=== PATIENT | female | born 1960 | race Caucasian/White ===

== ENCOUNTER 2016-09-23 13:32 | Emergency (ER) | payer MEDICARE ==
--- NOTE | 2016-09-23 14:48 | ERPHSYRPT ---
- History of Present Illness Time Seen by Provider: 09/23/16 14:42 Source: patient Exam Limitations: no limitations Patient Subjective Stated Complaint: fever for 3 days and 'i just dont feel good ' Triage Nursing Assessment: states fever intermittent for 3 days. normal oral intake. denies v/d. slight nausea. skin warm and dry. generalized achiness Physician History: Fever 103.9 at 11:30A today. Noticed symptoms for past 2 days, associated with dizziness, myalgia, weakness. No cough, congestion sore throat without any chest, abdominal or back pain. Had some nausea but no vomiting or diarrhea. Pt. with previous pneumonia/collapsed lung requiring surgeries. Taking Motrin and Tylenol with good relief. Eating adequately otherwise. No one else sick at home. 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 Associated Symptoms: muscle aches, nausea/vomiting, rhinorrhea, weakness, No abdominal pain, No chest pain, No cough, No rash, No sore throat, No syncope International travel in last 2 weeks: No Allergies/Adverse Reactions: clindamycin Allergy (Intermediate, Verified 09/23/16 13:50) Hives sulfacetamide sodium [From Sulfamide] Allergy (Intermediate, Verified 09/23/16 13:50) Hives Home Medications: Albuterol Sulfate [Proair Hfa] 8.5 gm IH QIDPRN PRN 09/23/16 [History] Alendronate Sodium 70 mg [Fosamax 70 MG] 70 mg PO UD 09/23/16 [History] Alprazolam 1 mg [Xanax 1 mg] 1 mg PO TIDPRN 09/23/16 [History] Calcium Carbonate/Vitamin D3 [Calcium 500 + Vit D 200 Tablet] 1 each PO DAILY [History] Diltiazem HCl 300 mg [Cardizem CD 300 MG] 300 mg PO DAILY 09/23/16 [ History] Furosemide 20 mg [Lasix 20 mg] 20 mg PO DAILY 09/23/16 [History] Losartan Potassium 50 mg PO DAILY 09/23/16 [History] Montelukast Sodium [Singulair] 2 mg PO DAILY 09/23/16 [History] Potassium Chloride 10 Meq Tab* [Klor Con 10 MEQ] 10 meq PO DAILY 09/23/16 [ History] Valsartan [Diovan] 160 mg PO DAILY 09/23/16 [History] Vortioxetine Hydrobromide [Brintellix] 10 mg PO DAILY 09/23/16 [History] Zolpidem Tartrate [Ambien Cr] 12.5 mg PO DAILY 09/23/16 [History] Hx Tetanus, Diphtheria Vaccination/Date Given: Yes Hx Influenza Vaccination/Date Given: No Hx Pneumococcal Vaccination/Date Given: No Immunizations Up to Date: Yes - Past Medical History Pertinent Past Medical History: Yes Neurological History: No Pertinent History ENT History: No Pertinent History Cardiac History: Hypertension Respiratory History: COPD Endocrine Medical History: No Pertinent History Musculoskeletal History: Osteoarthritis GI Medical History: Other History: No Pertinent History Psycho-Social History: Depression Female Reproductive Disorders: No Pertinent History Other Medical History: PT. USES 2L 02 AT ALL TIMES; 3-4 L O2 AT NIGHT. Fe Deficiency - Past Surgical History Past Surgical History: Yes Neuro Surgical History: No Pertinent History Cardiac: No Pertinent History Respiratory: No Pertinent History Gastrointestinal: Bowel Surgery, Cholecystectomy Genitourinary: No Pertinent History Musculoskeletal: No Pertinent History Female Surgical History: No Pertinent History Other Surgical History: SURGERY FOR BARIATRIC AND BOWEL OBSTRUCTION - Social History Smoking Status: Never smoker Exposure to second hand smoke: Yes Alcohol Use: None Drug Use: none Patient Lives Alone: No Significant Family History: heart disease (parents) - Female History Hx Now: No - Nursing Vital Signs Nursing Vital Signs: Initial Vital Signs Temperature 99.1 F Temperature Source Oral Pulse Rate 81 Respiratory Rate 18 Blood Pressure [Right Arm] 100/60 Pain Intensity 2 - Physical Exam General Appearance: no apparent distress, alert, other (Obese female) Eye Exam: PERRL/EOMI ENT Exam: normal ENT inspection, No tonsillar exudate Neck Exam: supple, full range of motion, No meningismus Respiratory Exam: normal breath sounds, lungs clear, no respiratory distress Cardiovascular/Chest Exam: normal heart sounds, regular rate/rhythm, No murmur, No edema Gastrointestinal/Abdominal Exam: soft, non tender, no distention Pelvic Exam: not done Rectal Exam: deferred Extremity Exam: non-tender, normal range of motion, normal inspection, normal capillary refill Neurologic Exam: alert, oriented x 3, cooperative, 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, normal mood/affect, sensation nml, No motor deficits Skin Exam: normal color, warm, dry, No rash - Radiology Exams Chest X-ray Interpretation: Teleradiologist Report, Negative, No Pneumonia Ordered Tests: Active Orders 24 hr Category Date Time Status Clean Catch Urine Specimen STAT Care 09/23/16 14:52 Active IV Insertion STAT Care 09/23/16 14:52 Active CHEST 2 VIEWS (PA AND LAT) Stat Exams 09/23/16 14:54 Completed BMP Stat Lab 09/23/16 15:44 Completed CBC W DIFF Stat Lab 09/23/16 15:44 Completed CULTURE, THROAT Stat Lab 09/23/16 15:44 Received Manual Differential NC Stat Lab 09/23/16 15:44 Completed STREP SCREEN-BETA A Stat Lab 09/23/16 15:44 Completed UA W/ MICROSCOPIC Stat Lab 09/23/16 15:44 Completed Medication Summary Generic Name Dose Route Start Last Admin Trade Name Freq PRN Reason Stop Dose Admin Levofloxacin/Dextrose 100 mls @ 100 mls/hr 09/23/16 16:04 09/23/16 16:16 Levofloxacin 500mg/100ml D5w IV 09/23/16 17:03 100 mls/hr STAT ONE Administration Discontinued Medications Generic Name Dose Route Start Last Admin Trade Name Freq PRN Reason Stop Dose Admin Sodium Chloride 1,000 mls @ 999 mls/hr 09/23/16 14:52 09/23/16 15:05 Sodium Chloride 0.9% 1000 Ml IV 09/23/16 15:52 999 mls/hr .Q1H1M STA Administration Sodium Chloride Confirm 09/23/16 15:03 Sodium Chloride 0.9% 1000 Ml Administered 09/23/16 15:04 Dose 1,000 mls @ ud .ROUTE .STK-MED ONE Levofloxacin/Dextrose Confirm 09/23/16 16:14 Levofloxacin 500mg/100ml D5w Administered 09/23/16 16:15 Dose 100 mls @ ud IV .STK-MED ONE Ibuprofen 800 mg 09/23/16 14:52 09/23/16 15:05 Motrin 600 Mg PO 09/23/16 14:53 800 mg STAT STA Administration Ibuprofen Confirm 09/23/16 15:03 Motrin 400 Mg Administered 09/23/16 15:04 Dose 800 mg .ROUTE .STK-MED ONE Lab/Rad Data: Laboratory Result Diagrams 09/23/16 15:44 09/23/16 15:44 Laboratory Results 09/23/16 09/23/16 09/23/16 Range/Units 15:44 15:44 15:44 WBC 15.1 H (4.0-10.5) K/mm3 RBC 3.26 L (4.1-5.4) M/mm3 Hgb 10.6 L (12.0-16.0) gm/dl Hct 32.7 L (35-47) % MCV 100.3 H (78-100) fl MCH 32.5 H (26-32) pg MCHC 32.4 (32-36) g/dl RDW 12.4 (11.5-14.0) % Plt Count 194 (150-450) K/mm3 MPV 9.8 H (6-9.5) fl Segmented Neutrophils 76 H (36.0-66.0) % Band Neutrophils 17 H (0.0-2.0) % Lymphocytes (Manual) 4 L (24-44) % Monocytes (Manual) 3 (0.0-12.0) % Differential Comment NORMAL Platelet Estimate NORMAL (NORMAL) Sodium 140 (136-145) mEq/L Potassium 3.4 L (3.5-5.1) mEq/L Chloride 103 (98-107) mEq/L Carbon Dioxide 27.8 (21-32) mEq/L Anion Gap 12.1 (5-15) MEQ/L BUN 19 (9-20) mg/dL Creatinine 1.06 (0.55-1.30) mg/dl Estimated GFR 57 ML/MIN Glucose 116 H (70-110) MG/DL Calcium 8.5 (8.5-10.1) mg/dL Ur Collection Type VOID Urine Color YELLOW (YELLOW) Urine Appearance SLIGHTLY CLOUDY (CLEAR) Urine pH 5.0 (5-6) Ur Specific [place] <=1.005 (1.005-1.025) Urine Protein TRACE (Negative) Urine Glucose (UA) NEGATIVE (NEGATIVE) mg/dL Urine Ketones NEGATIVE (NEGATIVE) Urine Nitrite NEGATIVE (NEGATIVE) Urine Bilirubin NEGATIVE (NEGATIVE) Urine Urobilinogen 1 (0-1) mg/dL Urine WBC (Auto) MODERATE (NEGATIVE) Urine RBC (Auto) SMALL (0-5) Williams/ul Urine Microscopic RBC 2-5 (0-2) /HPF Urine Microscopic WBC >100 (0-5) /HPF Ur Epithelial Cells FEW (FEW) /HPF Urine Bacteria MANY (NEGATIVE) /HPF Streptococcus Screen (Negative) Specimen Received 09/23/16 1553 09/23/16 Range/Units 15:44 WBC (4.0-10.5) K/mm3 RBC (4.1-5.4) M/mm3 Hgb (12.0-16.0) gm/dl Hct (35-47) % MCV (78-100) fl MCH (26-32) pg MCHC (32-36) g/dl RDW (11.5-14.0) % Plt Count (150-450) K/mm3 MPV (6-9.5) fl Segmented Neutrophils (36.0-66.0) % Band Neutrophils (0.0-2.0) % Lymphocytes (Manual) (24-44) % Monocytes (Manual) (0.0-12.0) % Differential Comment Platelet Estimate (NORMAL) Sodium (136-145) mEq/L Potassium (3.5-5.1) mEq/L Chloride (98-107) mEq/L Carbon Dioxide (21-32) mEq/L Anion Gap (5-15) MEQ/L BUN (9-20) mg/dL Creatinine (0.55-1.30) mg/dl Estimated GFR ML/MIN Glucose (70-110) MG/DL Calcium (8.5-10.1) mg/dL Ur Collection Type Urine Color (YELLOW) Urine Appearance (CLEAR) Urine pH (5-6) Ur Specific [place] (1.005-1.025) Urine Protein (Negative) Urine Glucose (UA) (NEGATIVE) mg/dL Urine Ketones (NEGATIVE) Urine Nitrite (NEGATIVE) Urine Bilirubin (NEGATIVE) Urine Urobilinogen (0-1) mg/dL Urine WBC (Auto) (NEGATIVE) Urine RBC (Auto) (0-5) Williams/ul Urine Microscopic RBC (0-2) /HPF Urine Microscopic WBC (0-5) /HPF Ur Epithelial Cells (FEW) /HPF Urine Bacteria (NEGATIVE) /HPF Streptococcus Screen NEGATIVE (Negative) Specimen Received - Progress Progress: improved Progress Note: 09/23/16 17:04 Pt. given IVF's along with Levaquin for UTI. States she feels better. Counseled pt/family regarding: lab results, diagnosis, rad results - Departure Time of Disposition: 17:04 Departure Disposition: Home Clinical Impression: UTI (urinary tract infection) Condition: Stable Critical Care Time: No Instructions: Fever (Symptom) -- Adult, Urinary Tract Infection (UTI) Additional Instructions: Drink plenty of fluids. Motrin or Tylenol for fever RX: Levaquin Return for worse fever, chills, vomiting, abdominal pain or any problems. Prescriptions: Levofloxacin [Levaquin] 500 mg PO DAILY #5 tablet
[2016-09-23] MEDS ORDERED: Sodium Chloride 0.9% 1000 ML 1,000 ML IV STA (14:52)
[2016-09-23] MEDS ORDERED: MOTRIN 600 MG PO STA (14:52)
[2016-09-23] MEDS ORDERED: MOTRIN 400 MG ONE (15:03)
[2016-09-23] MEDS ORDERED: Sodium Chloride 0.9% 1000 ML 1,000 ML ONE (15:03)
--- NOTE | 2016-09-23 15:28 | XRAY ---
Indication: Fever and cough. Comparison: January 05, 2013. PA/lateral chest hyperinflated with new right mid to lower lung curvilinear opacities and surgical clips all presumed postsurgical. Remaining lungs clear. Heart is not enlarged. Bony thorax intact with old right rib fractures and mild spinal degenerative changes. Impression: New right lung post surgical changes. Negative for acute pneumonic process or CHF.
[2016-09-23 15:48] LABS: Mean Cell Volume 100.3 fl (78-100); Mean Corpuscular Hemoglobin 32.5 pg (26-32); Mean Platelet Volume 9.8 fl (6-9.5); Platelet Count 194 K/mm3 (150-450); Red Blood Count 3.26 M/mm3 (4.1-5.4); Red Cell Distribution Width 12.4 % (11.5-14.0); White Blood Count 15.1 K/mm3 (4.0-10.5)
[2016-09-23 15:55] LABS: Collection Type VOID
[2016-09-23 15:56] LABS: COMPLETE URINE MICROSCOPIC? YES
[2016-09-23 15:58] LABS: Bacteria MANY /HPF (NEGATIVE); Epithelial Cells FEW /HPF (FEW); WBC >100 /HPF (0-5)
[2016-09-23] MEDS ORDERED: Levofloxacin 500MG/100ML D5W 100 ML IV ONE ×2 (16:04→16:14)
[2016-09-23 16:12] LABS: ANION GAP 12.1 MEQ/L (5-15); Carbon Dioxide 27.8 mEq/L (21-32); Potassium 3.4 mEq/L (3.5-5.1)
[2016-09-23 16:30] LABS: BAND 17 % (0.0-2.0); Platelet Estimate NORMAL (NORMAL); Total Cells Counted 100
[2016-09-23 17:34] VITALS: BP 148/79; PULSE 72; O2SAT 94
== END 2016-09-23 17:34 | disposition home or self-care (01) ==
LOC: ED 13:32
DX: N39.0 Urinary tract infection, site not specified (principal); R50.9 Fever, unspecified
CPT/HCPCS: 36000; 36415; 71020; 80048; 81000; 85025; 87070; 87430; 87631; 96360; 96361; 96365; 99284; J1956; A9270-GY

== ENCOUNTER 2018-11-04 18:00 | Emergency (ER) | payer MEDICARE ==
[2018-11-04] MEDS ORDERED: Sodium Chloride 0.9% 1000 ML 1,000 ML IV STA (18:11)
[2018-11-04] MEDS ORDERED: Sodium Chloride 0.9% 1000 ML 1,000 ML ONE (18:15)
--- NOTE | 2018-11-04 18:33 | ERPHSYRPT ---
- History of Present Illness Source: patient Exam Limitations: no limitations Patient Subjective Stated Complaint: nausea with dry heaving. loose watery stool since after eating taco salad. Triage Nursing Assessment: alert and in no distress.staets nause with retching. loose watery stools since . abdomen soft. generalized cramping. staes started after eating taco salad. Timing/Duration: day(s) (2-3 days) Severity: moderate Associated Symptoms: nausea, vomiting, abdominal pain, weakness Hx Tetanus, Diphtheria Vaccination/Date Given: Yes Hx Influenza Vaccination/Date Given: No Hx Pneumococcal Vaccination/Date Given: No <YESSY,JENNA - Last Filed: 11/04/18 18:47> <EDIL POOLE - Last Filed: 11/04/18 21:39> - History of Present Illness Time Seen by Provider: 11/04/18 18:30 Physician History: nausea with dry heaving. loose watery stool since after eating taco salad. no fever (YESSY,JENNA) Allergies/Adverse Reactions: clindamycin Allergy (Intermediate, Verified 09/23/16 13:50) Hives sulfacetamide sodium [From Sulfamide] Allergy (Intermediate, Verified 09/23/16 13:50) Hives Home Medications: Albuterol Sulfate [Proair Hfa] 8.5 gm IH QIDPRN PRN 09/23/16 [History] Alendronate Sodium 70 mg [Fosamax 70 MG] 70 mg PO UD 09/23/16 [History] Alprazolam 1 mg [Xanax 1 mg] 1 mg PO TIDPRN 09/23/16 [History] Calcium Carbonate/Vitamin D3 [Calcium 500 + Vit D 200 Tablet] 1 each PO DAILY [History] Diltiazem HCl 300 mg [Cardizem CD 300 MG] 300 mg PO DAILY 09/23/16 [ History] Furosemide 20 mg [Lasix 20 mg] 20 mg PO DAILY 09/23/16 [History] Losartan Potassium 50 mg PO DAILY 09/23/16 [History] Montelukast Sodium [Singulair] 2 mg PO DAILY 09/23/16 [History] Potassium Chloride 10 Meq Tab* [Klor Con 10 MEQ] 10 meq PO DAILY 09/23/16 [ History] Valsartan [Diovan] 160 mg PO DAILY 09/23/16 [History] Vortioxetine Hydrobromide [Brintellix] 10 mg PO DAILY 09/23/16 [History] Zolpidem Tartrate [Ambien Cr] 12.5 mg PO DAILY 09/23/16 [History] - Review of Systems Constitutional: Weakness, No Fever, No Chills Eyes: No Symptoms Ears, Nose, & Throat: No Symptoms Respiratory: No Cough, No Dyspnea Cardiac: No Chest Pain, No Edema, No Syncope Abdominal/Gastrointestinal: Nausea, Vomiting, Diarrhea, Appetite Changes, No Abdominal Pain Genitourinary Symptoms: No Dysuria Musculoskeletal: No Back Pain, No Neck Pain Skin: No Rash Neurological: No Dizziness, No Focal Weakness, No Sensory Changes Psychological: No Symptoms Endocrine: No Symptoms All Other Systems: Reviewed and Negative < - Last Filed: 11/04/18 18:47> - Past Medical History Pertinent Past Medical History: Yes Neurological History: No Pertinent History ENT History: No Pertinent History Cardiac History: Hypertension Respiratory History: COPD Endocrine Medical History: No Pertinent History Musculoskeletal History: Osteoarthritis GI Medical History: Other History: No Pertinent History Psycho-Social History: Depression Female Reproductive Disorders: No Pertinent History Other Medical History: PT. USES 2L 02 AT ALL TIMES; 3-4 L O2 AT NIGHT. Fe Deficiency - Past Surgical History Past Surgical History: Yes Neuro Surgical History: No Pertinent History Cardiac: No Pertinent History Respiratory: No Pertinent History Gastrointestinal: Bowel Surgery, Cholecystectomy Genitourinary: No Pertinent History Musculoskeletal: No Pertinent History Female Surgical History: No Pertinent History Other Surgical History: SURGERY FOR BARIATRIC AND BOWEL OBSTRUCTION - Social History Smoking Status: Never smoker Exposure to second hand smoke: No Alcohol Use: None Drug Use: none Patient Lives Alone: No Significant Family History: heart disease (parents) < - Last Filed: 11/04/18 18:47> - Physical Exam General Appearance: no apparent distress, alert Eye Exam: PERRL/EOMI, eyes nml inspection Ears, Nose, Throat Exam: normal ENT inspection, TMs normal, pharynx normal, moist mucous membranes Neck Exam: normal inspection, non-tender, supple, full range of motion Respiratory Exam: normal breath sounds, lungs clear, No respiratory distress Cardiovascular Exam: regular rate/rhythm, normal heart sounds, normal peripheral pulses Gastrointestinal/Abdomen Exam: soft, normal bowel sounds, No tenderness, No mass Back Exam: normal inspection, normal range of motion, No CVA tenderness, No vertebral tenderness Extremity Exam: normal inspection, normal range of motion, pelvis stable Neurologic Exam: alert, oriented x 3, cooperative, normal mood/affect, nml cerebellar function, nml station & gait, sensation nml, No motor deficits Skin Exam: normal color, warm, dry, No rash Lymphatic Exam: No adenopathy SpO2: 18 <YESSY,JENNA - Last Filed: 11/04/18 18:47> - Nursing Vital Signs Nursing Vital Signs: Initial Vital Signs Temperature 97.7 F 11/04/18 18:12 Pulse Rate 96 H 11/04/18 18:12 Respiratory Rate 18 11/04/18 18:12 Blood Pressure 109/75 11/04/18 18:12 O2 Sat by Pulse Oximetry 97 11/04/18 18:12 Pain Scale Pain Intensity 0 - Course Nursing assessment & vital signs reviewed: Yes <YESSY,JENNA - Last Filed: 11/04/18 18:47> - CT Exams Abdomen/Pelvis CT Interpretation: Negative, Other (Enteritis) <EDIL POOLE - Last Filed: 11/04/18 21:39> Ordered Tests: Active Orders 24 hr Category Date Time Status ABDOMEN AND PELVIS W CONTRAST [CT] Stat Exams 11/04/18 19:36 Taken CHEST 2 VIEWS (PA AND LAT) Stat Exams 11/04/18 18:24 Taken AMYLASE Stat Lab 11/04/18 18:38 Completed BLOOD CULTURE Stat Lab 11/04/18 18:38 Received CBC W DIFF Stat Lab 11/04/18 18:38 Completed CMP Stat Lab 11/04/18 18:38 Completed CULTURE,URINE Stat Lab 11/04/18 Uncollected LIPASE Stat Lab 11/04/18 18:38 Completed Lactic Acid Stat Lab 11/04/18 18:23 Completed UA W/RFX UR CULTURE Stat Lab 11/04/18 20:03 Completed Peak Expiratory Flow Rate ONCE RT 11/04/18 20:36 Active Respiratory Therapy Assessment DAILY RT 11/04/18 20:35 Active Medication Summary Discontinued Medications Generic Name Dose Route Start Last Admin Trade Name Freq PRN Reason Stop Dose Admin Albuterol/Ipratropium 3 ml 11/04/18 20:05 11/04/18 20:31 Duoneb 0.5-3 Mg/3 Ml Neb IH 11/04/18 20:06 3 ml STAT ONE Administration Albuterol/Ipratropium Confirm 11/04/18 20:09 Duoneb 0.5-3 Mg/3 Ml Neb Administered 11/04/18 20:10 Dose 3 ml IH .STK-MED ONE Cephalexin HCl 500 mg 11/04/18 21:27 11/04/18 21:34 Keflex 500 Mg PO 11/04/18 21:28 500 mg STAT ONE Administration Cephalexin HCl Confirm 11/04/18 21:33 Keflex 500 Mg Administered 11/04/18 21:34 Dose 500 mg .ROUTE .STK-MED ONE Sodium Chloride 1,000 mls @ 999 mls/hr 11/04/18 18:11 11/04/18 19:31 Sodium Chloride 0.9% 1000 Ml IV 11/04/18 19:11 Infused .Q1H1M STA Infusion Sodium Chloride Confirm 11/04/18 18:15 Sodium Chloride 0.9% 1000 Ml Administered 11/04/18 18:16 Dose 1,000 mls @ ud .ROUTE .STK-MED ONE Lorazepam 0.5 mg 11/04/18 19:48 11/04/18 19:54 Ativan 2 Mg/1 Ml Vial IV 11/04/18 19:49 0.5 mg STAT ONE Administration Lorazepam Confirm 11/04/18 19:53 Ativan 2 Mg/1 Ml Vial Administered 11/04/18 19:54 Dose 2 mg .ROUTE .STK-MED ONE Ondansetron HCl 4 mg 11/04/18 19:48 11/04/18 19:53 Zofran 4 Mg/2 Ml Vial IV 11/04/18 19:49 4 mg STAT ONE Administration Ondansetron HCl Confirm 11/04/18 19:53 Zofran 4 Mg/2 Ml Vial Administered 11/04/18 19:54 Dose 4 mg .ROUTE .STK-MED ONE Ondansetron HCl 4 mg 11/04/18 21:30 11/04/18 21:34 Zofran Odt 4 Mg PO 11/04/18 21:31 4 mg STAT ONE Administration Ondansetron HCl 4 mg 11/04/18 21:30 Zofran Odt 4 Mg PO 11/04/18 21:31 STAT ONE Ondansetron HCl Confirm 11/04/18 21:33 Zofran Odt 4 Mg Administered 11/04/18 21:34 Dose 4 mg .ROUTE .STK-MED ONE Lab/Rad Data: Laboratory Result Diagrams 11/04/18 18:38 11/04/18 18:38 Laboratory Results 11/04/18 11/04/18 11/04/18 Range/Units 20:03 18:38 18:38 WBC 9.1 (4.0-10.5) K/mm3 RBC 4.47 (4.1-5.4) M/mm3 Hgb 14.8 (12.0-16.0) gm/dl Hct 44.4 (35-47) % MCV 99.3 (78-100) fl MCH 33.1 H (26-32) pg MCHC 33.3 (32-36) g/dl RDW 12.4 (11.5-14.0) % Plt Count 355 (150-450) K/mm3 MPV 9.5 (6-9.5) fl Gran % 76.1 H (36.0-66.0) % Eos # (Auto) 0.06 (0-0.5) Absolute Lymphs (auto) 1.16 (1.0-4.6) Absolute Monos (auto) 0.93 (0.0-1.3) Lymphocytes % 12.7 L (24.0-44.0) % Monocytes % 10.2 (0.0-12.0) % Eosinophils % 0.7 (0.00-5.0) % Basophils % 0.3 (0.0-0.4) % Absolute Granulocytes 6.95 H (1.4-6.9) Basophils # 0.03 (0-0.4) Sodium 136 L (137-145) mmol/L Potassium 4.0 (3.5-5.1) mmol/L Chloride 94 L (98-107) mmol/L Carbon Dioxide 30 (22-30) mmol/L Anion Gap 16.1 H (5-15) MEQ/L BUN 9 (7-17) mg/dL Creatinine 0.51 L (0.52-1.04) mg/dL Estimated GFR > 60.0 ML/MIN Glucose 113 H (74-106) mg/dL Lactic Acid (0.4-2.0) Calcium 9.9 (8.4-10.2) mg/dL Total Bilirubin 0.60 (0.2-1.3) mg/dL AST 38 H (14-36) U/L ALT 33 (0-35) U/L Alkaline Phosphatase 137 H (38-126) U/L Serum Total Protein 8.4 H (6.3-8.2) g/dL Albumin 4.7 (3.5-5.0) g/dL Amylase 78 (30-110) U/L Lipase 43 (23-300) U/L Urine Color YELLOW (YELLOW) Urine Appearance SLIGHTLY CLOUDY (CLEAR) Urine pH 6.0 (5-6) Ur Specific [place] 1.008 (1.005-1.025) Urine Protein NEGATIVE (Negative) Urine Ketones TRACE (NEGATIVE) Urine Blood NEGATIVE (0-5) Williams/ul Urine Nitrite NEGATIVE (NEGATIVE) Urine Bilirubin NEGATIVE (NEGATIVE) Urine Urobilinogen NEGATIVE (0-1) mg/dL Ur Leukocyte Esterase TRACE (NEGATIVE) Urine WBC (Auto) 3-5 (0-5) /HPF Urine RBC (Auto) 0-2 (0-2) /HPF U Hyaline Cast (Auto) 0-2 (0-2) /LPF U Epithel Cells (Auto) RARE (FEW) /HPF Urine Bacteria (Auto) MODERATE (NEGATIVE) /HPF Urine Mucus (Auto) SLIGHT (NEGATIVE) /HPF Urine Culture Reflexed NO (NO) Urine Glucose NEGATIVE (NEGATIVE) mg/dL 11/04/18 Range/Units 18:23 WBC (4.0-10.5) K/mm3 RBC (4.1-5.4) M/mm3 Hgb (12.0-16.0) gm/dl Hct (35-47) % MCV (78-100) fl MCH (26-32) pg MCHC (32-36) g/dl RDW (11.5-14.0) % Plt Count (150-450) K/mm3 MPV (6-9.5) fl Gran % (36.0-66.0) % Eos # (Auto) (0-0.5) Absolute Lymphs (auto) (1.0-4.6) Absolute Monos (auto) (0.0-1.3) Lymphocytes % (24.0-44.0) % Monocytes % (0.0-12.0) % Eosinophils % (0.00-5.0) % Basophils % (0.0-0.4) % Absolute Granulocytes (1.4-6.9) Basophils # (0-0.4) Sodium (137-145) mmol/L Potassium (3.5-5.1) mmol/L Chloride (98-107) mmol/L Carbon Dioxide (22-30) mmol/L Anion Gap (5-15) MEQ/L BUN (7-17) mg/dL Creatinine (0.52-1.04) mg/dL Estimated GFR ML/MIN Glucose (74-106) mg/dL Lactic Acid 1.0 (0.4-2.0) Calcium (8.4-10.2) mg/dL Total Bilirubin (0.2-1.3) mg/dL AST (14-36) U/L ALT (0-35) U/L Alkaline Phosphatase (38-126) U/L Serum Total Protein (6.3-8.2) g/dL Albumin (3.5-5.0) g/dL Amylase (30-110) U/L Lipase (23-300) U/L Urine Color (YELLOW) Urine Appearance (CLEAR) Urine pH (5-6) Ur Specific [place] (1.005-1.025) Urine Protein (Negative) Urine Ketones (NEGATIVE) Urine Blood (0-5) Williams/ul Urine Nitrite (NEGATIVE) Urine Bilirubin (NEGATIVE) Urine Urobilinogen (0-1) mg/dL Ur Leukocyte Esterase (NEGATIVE) Urine WBC (Auto) (0-5) /HPF Urine RBC (Auto) (0-2) /HPF U Hyaline Cast (Auto) (0-2) /LPF U Epithel Cells (Auto) (FEW) /HPF Urine Bacteria (Auto) (NEGATIVE) /HPF Urine Mucus (Auto) (NEGATIVE) /HPF Urine Culture Reflexed (NO) Urine Glucose (NEGATIVE) mg/dL <YESSY,JENNA - Last Filed: 11/04/18 18:47> - Progress Progress: improved Counseled pt/family regarding: lab results, diagnosis, need for follow-up, rad results <EDIL POOLE - Last Filed: 11/04/18 21:39> - Progress Progress Note: 11/04/18 21:28 Pt denies severe pain, not vomited, afebrile, she was c/o vague urinary symptoms , started on Keflex, and urine cultures were ordered. She is being discharged in stable condition after discussing her labs and CT results, advised to rest x 2-3 days, drink plenty of fluids, and follow up with her physician in 2-3 days, return if severe pain, vomiting, fever> 102 F! (ALEJANDRA POOLEOS) <JENNA KRISHNAMURTHY - Last Filed: 11/04/18 18:47> - Departure Departure Disposition: Home Critical Care Time: No <NEMOLUISAEDIL Brown - Last Filed: 11/04/18 21:39> - Departure Clinical Impression: Gastroenteritis UTI (urinary tract infection) Qualifiers: Urinary tract infection type: acute cystitis Hematuria presence: without hematuria Qualified Code(s): N30.00 - Acute cystitis without hematuria Condition: Stable Referrals: ERIC PAGAN [Primary Care Provider] - Instructions: Urinary Tract Infection, Adult (DC), Viral Gastroenteritis, Adult (DC) Additional Instructions: Rest x 2-3 days, drink plenty of fluids, and follow up with your physician in 2- 3 days, return if severe pain, vomiting, fever> 102 F! Prescriptions: Ondansetron ODT 4 MG [Zofran Odt 4 mg] 4 mg PO Q6H PRN PRN #10 tab.rapdis PRN Reason: Nausea/Vomiting Cephalexin Mh 500 mg [Keflex 500 mg] 500 mg PO Q6H #28 capsule
[2018-11-04 18:40] LABS: BASOPHIL % 0.3 % (0.0-0.4); Basophil (Absolute #) 0.03 (0-0.4); Eosinophil % 0.7 % (0.00-5.0); Eosinophil (Absolute #) 0.06 (0-0.5); Granulocyte Absolute (ANC) 6.95 (1.4-6.9); Granulocytes % 76.1 % (36.0-66.0); Hematocrit 44.4 % (35-47); Hemoglobin 14.8 gm/dl (12.0-16.0); Lymphocyte (Absolute #) 1.16 (1.0-4.6); Lymphocytes % 12.7 % (24.0-44.0); Mean Cell Volume 99.3 fl (78-100); Mean Corpuscular Hemoglobin 33.1 pg (26-32); Mean Corpuscular Hgb Concent. 33.3 g/dl (32-36); Mean Platelet Volume 9.5 fl (6-9.5); Monocyte (Absolute #) 0.93 (0.0-1.3); Monocytes % 10.2 % (0.0-12.0); Platelet Count 355 K/mm3 (150-450); Red Blood Count 4.47 M/mm3 (4.1-5.4); Red Cell Distribution Width 12.4 % (11.5-14.0); White Blood Count 9.1 K/mm3 (4.0-10.5)
[2018-11-04 18:51] LABS: ALBUMIN 4.7 g/dL (3.5-5.0); ALKALINE PHOSPHATASE 137 U/L (38-126); AMYLASE 78 U/L (30-110); ANION GAP 16.1 MEQ/L (5-15); BLOOD UREA NITROGEN 9 mg/dL (7-17); CHLORIDE 94 mmol/L (98-107); Calcium 9.9 mg/dL (8.4-10.2); Carbon Dioxide 30 mmol/L (22-30); Creatinine 1 0.51 mg/dL (0.52-1.04); Glucose 113 mg/dL (74-106); LIPASE 43 U/L (23-300); SGOT/AST 38 U/L (14-36); SGPT/ALT 33 U/L (0-35); SODIUM 136 mmol/L (137-145); Total Protein 8.4 g/dL (6.3-8.2)
[2018-11-04] MEDS ORDERED: Zofran 4 MG/2 ML VIAL IV ONE (19:48)
[2018-11-04] MEDS ORDERED: Ativan 2 MG/1 ML VIAL IV ONE (19:48)
[2018-11-04] MEDS ORDERED: Zofran 4 MG/2 ML VIAL ONE (19:53)
[2018-11-04] MEDS ORDERED: Ativan 2 MG/1 ML VIAL ONE (19:53)
[2018-11-04] MEDS ORDERED: DUONEB 0.5-3 MG/3 ml Neb IH ONE ×2 (20:05→20:09)
[2018-11-04 20:12] LABS: Appearance SLIGHTLY CLOUDY (CLEAR); Bacteria MODERATE /HPF (NEGATIVE); Bilirubin NEGATIVE (NEGATIVE); Blood NEGATIVE Ery/ul (0-5); Epithelial Cells RARE /HPF (FEW); Glucose NEGATIVE (NEGATIVE); Hyaline Casts 0-2 /LPF (0-2); Ketones TRACE (NEGATIVE); Leukocyte Esterase TRACE (NEGATIVE); Mucus SLIGHT /HPF (NEGATIVE); Nitrite NEGATIVE (NEGATIVE); Protein,Urine Dip NEGATIVE (Negative); RBC 0-2 /HPF (0-2); Specific Gravity 1.008 (1.005-1.025); Urobilinogen NEGATIVE mg/dL (0-1)
[2018-11-04 21:03] VITALS: O2SAT 97
[2018-11-04] MEDS ORDERED: KEFLEX 500 MG PO ONE (21:27)
[2018-11-04] MEDS ORDERED: ZOFRAN ODT 4 MG PO ONE ×2 (21:30)
[2018-11-04] MEDS ORDERED: ZOFRAN ODT 4 MG ONE (21:33)
[2018-11-04] MEDS ORDERED: KEFLEX 500 MG ONE (21:33)
[2018-11-04 21:52] VITALS: BP 93/77; PULSE 74
--- NOTE | 2018-11-05 08:44 | XRAY ---
Indication: Abdomen pain, nausea, and diarrhea 3 days. Multiple contiguous axial images obtained through the abdomen and pelvis using 80 cc Isovue 370 contrast only. 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 Tiny right base calcified granuloma. No infiltrate or effusion. Heart is not enlarged. Small hiatal hernia. There has been gastric bypass surgery and cholecystectomy. Noncontrasted stomach and bowel loops appear nonobstructed. Mild fluid distended small bowel loops with some fluid leveling, ileus versus enteritis. Appendix not seen. No free fluid/air. Remaining liver, pancreas, spleen, adrenal glands, kidneys, ureters, bladder, and uterus appear unremarkable for noncontrast exam. Minimal aortic calcifications. No AAA or pathologic retroperitoneal lymphadenopathy. Osseous structures intact. No ventral or inguinal hernias. Impression: 1. Mildly distended small bowel loops with fluid leveling, ileus versus enteritis. 2. Small hiatal hernia and right lung base bullae. Comment: Preliminary interpretation was made by [facility]. No critical discrepancy. CT DI 28.13
--- NOTE | 2018-11-05 08:46 | XRAY ---
Indication: Short of breath. Comparison: September 23, 2016. PA/lateral chest demonstrates stable right base postsurgical changes including large bullae, fibrosis/scarring, and blunting of the costophrenic angle. Remaining heart and lungs unremarkable. Bony thorax intact again with partial resection right 8 rib. Impression: Stable nonacute chest with chronic features.
== END 2018-11-04 21:51 | disposition home or self-care (01) ==
LOC: ED 18:00
DX: K52.9 Noninfective gastroenteritis and colitis, unspecified (principal); N30.00 Acute cystitis without hematuria; F32.9 Major depressive disorder, single episode, unspecified; I10 Essential (primary) hypertension; J44.9 Chronic obstructive pulmonary disease, unspecified; Z79.899 Other long term (current) drug therapy
CPT/HCPCS: 36415; 71046; 74177; 80053; 81001; 82150; 83605; 83690; 85025; 87040; 94150; 94640; 96360; 96374; 96375; 99284; J2060; J2405; Q0162; A9270-GY